=== PATIENT | male | born 1940 | race Caucasian/White ===

== ENCOUNTER 2022-07-11 14:26 | Outpatient (CLI) | payer OTHER | END 2022-07-11 14:27 | disposition home or self-care (01) | LOC: RAD 14:26 | PROVIDERS: ATTEND Internal Medicine Critical Care Medicine | DX: R06.00 Dyspnea, unspecified (principal) | CPT/HCPCS: 71046 ==

== ENCOUNTER 2022-11-01 11:55 | Inpatient (IN) | payer MEDICARE, OTHER ==
[2022-11-01 12:31] LABS: #Eosinphils 0.1 thou/uL (0.0-0.7); #Monocytes 0.6 thou/uL (0.11-0.59); #Neutrophils 5.9 thou/uL (1.40-6.50); %Basophils 0.5 % (0.0-1.0); %Eosinophils 1.7 % (0.0-10.0); %Lymphocytes 14.4 % (21.0-51.0); %Monocytes 7.2 % (0.0-10.0); %Neutrophils 75.9 % (42.0-75.0); Hemoglobin 7.6 g/dL (14.0-18.0); Mean Corpuscular HGB CONC 31.5 g/dL (32.0-36.0); Mean Corpuscular Volume 95.3 fl (78.0-98.0); Mean Platelet Volume 9.2 fL (7.4-10.4); Platelet Count 250 10x3/uL (130-400); RBC Distribution Width 18.4 % (11.5-14.5); Red Blood Cell (RBC) Count 2.53 mill/uL (4.70-6.10); White Blood Cell (WBC) Count 7.7 10x3/uL (4.8-10.8)
[2022-11-01 12:53] LABS: ALT (SGPT) Less than 7 U/L (8-55); AST (SGOT) 10 U/L (5-34); Albumin 3.1 g/dL (3.4-4.8); Alkaline Phosphatase 56 U/L (40-110); Anion Gap 11 mmol/L (10-20); BUN (Urea Nitrogen) 40 mg/dL (8.4-25.7); Bilirubin, Total 0.4 mg/dL (0.2-1.2); Calc. Creatinine Clearance 0 mL/min (70-130); Calcium 8.5 mg/dL (7.8-10.44); Carbon Dioxide 25 mmol/L (23-31); Chloride 102 mmol/L (98-107); Estimated GFR 39; Glucose 126 mg/dL (83-110); Potassium 4.4 mmol/L (3.5-5.1); Protein, Total 6.1 g/dL (5.8-8.1); Sodium 134 mmol/L (136-145)
[2022-11-01] MEDS ORDERED: Acetaminophen 325 MG TAB PO PRN (15:44)
[2022-11-01] MEDS ORDERED: Ondansetron PF 4 MG/2 ML Vial IVP PRN (15:44)
[2022-11-01] MEDS ORDERED: Methocarbamol 500 MG TAB PO PRN (16:00)
[2022-11-01 16:01] LABS: Troponin I Less than 0.010 ng/mL (< 0.028)
[2022-11-01] MEDS ORDERED: Docusate 100 MG CAP PO PRN (16:03)
[2022-11-01] MEDS ORDERED: Polyethylene Glycol 3350 17 GM Packet PO PRN (16:03)
[2022-11-01] MEDS ORDERED: Nicotine 14 MG PATCH TD SCH (16:15)
[2022-11-01] MEDS ORDERED: Bisacodyl 10 MG SUPP PR SCH (16:15)
[2022-11-01] MEDS ORDERED: Polyethylene Glycol 3350 17 GM Packet PO SCH (16:15)
[2022-11-01] MEDS ORDERED: Docusate 100 MG CAP PO SCH (16:15)
[2022-11-01] MEDS: Lactated Ringer's 1,000 ML IV SCH (17:27)
[2022-11-01 18:34] LABS: Hemoglobin 8.4 g/dL (14.0-18.0)
[2022-11-01 19:01] VITALS: BMI 26.8
[2022-11-01 19:01] LABS: Iron 65 ug/dL (65-175); Iron Binding Capacity, Total 273 mcg/dL (261-462)
[2022-11-01 19:06] LABS: Troponin I Less than 0.010 ng/mL (< 0.028)
[2022-11-01] MEDS ORDERED: Atorvastatin Calcium 10 MG TAB PO SCH (21:00)
[2022-11-01] MEDS ORDERED: Melatonin 3 MG TAB PO SCH (21:00)
[2022-11-01] MEDS: Valproic Acid 250 MG CAP PO SCH (23:48)
[2022-11-02 04:48] LABS: #Eosinphils 0.2 thou/uL (0.0-0.7); #Monocytes 0.6 thou/uL (0.11-0.59); #Neutrophils 3.8 thou/uL (1.40-6.50); %Basophils 0.6 % (0.0-1.0); %Eosinophils 3.8 % (0.0-10.0); %Lymphocytes 25.2 % (21.0-51.0); %Monocytes 9.4 % (0.0-10.0); %Neutrophils 60.4 % (42.0-75.0); Mean Corpuscular HGB CONC 32.3 g/dL (32.0-36.0); Mean Corpuscular Hemoglobin 30.4 pg (27.0-31.0); Mean Corpuscular Volume 94.3 fl (78.0-98.0); Mean Platelet Volume 11.7 fL (7.4-10.4); Platelet Count 169 10x3/uL (130-400); RBC Distribution Width 17.9 % (11.5-14.5); Red Blood Cell (RBC) Count 2.63 mill/uL (4.70-6.10); White Blood Cell (WBC) Count 6.3 10x3/uL (4.8-10.8)
[2022-11-02 05:11] LABS: Anion Gap 9 mmol/L (10-20); BUN (Urea Nitrogen) 29 mg/dL (8.4-25.7); Calc. Creatinine Clearance 55 mL/min (70-130); Calcium 8.9 mg/dL (7.8-10.44); Carbon Dioxide 27 mmol/L (23-31); Chloride 103 mmol/L (98-107); Estimated GFR 53; Glucose 81 mg/dL (83-110); Potassium 4.4 mmol/L (3.5-5.1); Sodium 135 mmol/L (136-145)
[2022-11-02] MEDS: Lactated Ringer's 1,000 ML IV SCH (06:08)
[2022-11-02] MEDS ORDERED: Apixaban 2.5 MG TAB PO SCH (09:00)
[2022-11-02] MEDS ORDERED: Lisinopril 20 MG TAB PO SCH (09:00)
[2022-11-02] MEDS ORDERED: Aspirin Chewable 81 MG TAB PO SCH (09:00)
[2022-11-02] MEDS ORDERED: Cyanocobalamin (Vitamin B-12) 1,000 MCG TAB PO SCH (09:00)
[2022-11-02] MEDS ORDERED: Metoprolol Tartrate 25 MG TAB PO SCH (09:00)
[2022-11-02 10:39] VITALS: TEMP 98.3
[2022-11-02] MEDS: Valproic Acid 250 MG CAP PO SCH (11:00)
[2022-11-02 11:52] VITALS: BP 139/79
[2022-11-02] MEDS ORDERED: Nicotine 14 MG PATCH TD SCH ×2 (12:00→16:00)
[2022-11-02] MEDS ORDERED: Amlodipine 5 MG TAB PO SCH (21:00)
== END 2022-11-02 13:00 | disposition home health service (06) | DRG 315 ==
LOC: ERS 11:55 → ERHOLD 16:10 → 2NO 18:55
PROVIDERS: ADMIT Internal Medicine; ATTEND Internal Medicine
DX: I95.9 Hypotension, unspecified (principal); N17.9 Acute kidney failure, unspecified; R55 Syncope and collapse; Z66 Do not resuscitate; I10 Essential (primary) hypertension; J44.9 Chronic obstructive pulmonary disease, unspecified; E78.5 Hyperlipidemia, unspecified; K21.9 Gastro-esophageal reflux disease without esophagitis; F17.210 Nicotine dependence, cigarettes, uncomplicated; K59.00 Constipation, unspecified; R56.9 Unspecified convulsions; D63.8 Anemia in other chronic diseases classified elsewhere; R13.12 Dysphagia, oropharyngeal phase; Z71.6 Tobacco abuse counseling; Z88.5 Allergy status to narcotic agent; Z88.8 Allergy status to other drugs, medicaments and biological substances; Z91.041 Radiographic dye allergy status; Z79.51 Long term (current) use of inhaled steroids; Z79.899 Other long term (current) drug therapy
CPT/HCPCS: 36415; 36416; 80048; 80053; 82274; 82728; 83540; 83550; 84484; 85025; 86850; 86900; 86901; 93005; J7120